=== PATIENT | female | born 1965 | race Caucasian/White ===

== ENCOUNTER 2016-11-06 13:08 | Inpatient (IN) | payer BC ==
[~2016-11-06] VITALS: Ht 167.6 cm; Wt 65.9 kg
--- NOTE | 2016-11-06 15:00 | NUR ---
PT ARRIVED TO ROOM BY WHEELCHAIR FROM ER. C/O BACK PAIN 11/08. ADMISSION ASSESSMENT AND HISTORY COMPLETED. PT SITUATED. BED LOW, CALL LIGHT WITHIN REACH. ALL QUESTIONS ANSWERED. IV R FOREARM INFUSING ORDRED. DRSG CLEAN, DRY AND INTACT. SWAB CAPS IN PLACE.
[2016-11-06 15:09] VITALS: BP 126/74; Ht 167.6 cm; Wt 65.9 kg
[2016-11-06 15:54] LABS: BASOPHILS 0.3 % (0-2); HEMATOCRIT 38.1 % (36.0-48.0); HEMOGLOBIN 12.5 g/dL (12-16); IMMATURE GRANULOCYTES 0.2 % (0-5); LYMPHOCYTES 27.8 % (15-50); MCH 30.5 pg (26.0-34.0); MCHC 32.8 g/dL (31.0-37.0); MCV 92.9 fL (80.0-100.0); MEAN PLATELET VOLUME 9.2 fL (7.4-10.4); MONOCYTES 9.6 % (2-11); NEUTROPHILS 61.1 % (40-80); PLATELET COUNT 283 10x3/uL (130-400); RDW 14.1 % (11.5-14.5); WBC 11.4 10x3/uL (4.8-10.8)
[2016-11-06 16:06] LABS: INR 0.93 (0.85-1.17); PROTIME 12.4 SECONDS (11.6-15.0)
[2016-11-06 16:15] LABS: ALBUMIN 3.1 g/dL (3.4-5.0); ALKALINE PHOSPHATASE 43 U/L (46-116); ALT (SGPT) 20 U/L (10-68); BILIRUBIN - TOTAL 0.25 mg/dL (0.2-1.3); CALC OSMOLALITY 272 mosm/kg (275-300); CALCIUM 7.9 mg/dL (8.5-10.1); CARBON DIOXIDE 29.9 mmol/L (21.0-32.0); CHLORIDE - SERUM 102 mmol/L (98-107); CREATININE - SERUM 0.8 mg/dL (0.6-1.3); GLUCOSE 91 mg/dL (74-106); POTASSIUM - SERUM 3.7 mmol/L (3.5-5.1); PROTEIN - SERUM 6.9 g/dL (6.4-8.2); SODIUM 137 mmol/L (136-145); UREA NITROGEN 10 mg/dL (7-18); eGFR NON AFRICAN AMERICAN 80 mL/min (90-120)
--- NOTE | 2016-11-06 17:16 | NUR ---
PT IN BED, EATING DINNER. NO COMLAINTS AT THIS TIME. AT BEDSIDE. BED LOW, CALL LIGHT WITHIN REACH.
[2016-11-06 17:36] VITALS: BP 126/74
[2016-11-06 17:40] VITALS: BP 126/74
[2016-11-06 19:46] LABS: ERYTHROCYTE SEDIMENTATION RATE 45 mm/hr (0-30)
[2016-11-06 20:00] VITALS: BP 123/75
[2016-11-06 20:15] LABS: APPEARANCE CLEAR (CLEAR); BILIRUBIN NEGATIVE (NEGATIVE); COLOR YELLOW (YELLOW); GLUCOSE NEGATIVE (NEGATIVE); KETONE NEGATIVE (NEGATIVE); LEUKOCYTE ESTERASE NEGATIVE (NEGATIVE); NITRITE NEGATIVE (NEGATIVE); PROTEIN NEGATIVE (NEGATIVE); SPECIFIC GRAVITY 1.015 (1.005-1.020); UROBILINOGEN NORMAL (NORMAL)
--- NOTE | 2016-11-06 20:17 | NUR ---
PT SEEN. STATES PAIN IS MID BACK. STATES INSIDE WIRER HELPS. UNCOMFORTABLE AT PRESENT BUT SHIFTS IN BED TO RELIEVE DISCOMFORT. NPO AFTER MIDNIGHT FOR BX IN AM-CONSENTS SIGNED. EXPLAINED TO PATIENT. CALL LIGHT IN REACH
--- NOTE | 2016-11-06 21:15 | NUR ---
LYING IN BED,WITHOUT DISTRESS.STATES PAIN 8/10 SCALE TO UPPER BACK.SKILLED NURSING FACILITY COUNSELOR USE INSTRUCTED.CALL LIGHT IN REACH. FAMILY AT BEDSIDE
[2016-11-07] VITALS: BP 120/70
--- NOTE | 2016-11-07 06:38 | NUR ---
REMAINS WITHOUT CHANGE.NPO FOR SURGERY TODAY.CONT PLAN OF CARE
--- NOTE | 2016-11-07 07:00 | NUR ---
PT REC'D FROM JOSE, ANDRZEJ. RESTING IN BED WITH AT BEDSIDE. RATING CURRENT PAIN IN BACK 11/08. REMINDED PT OF DILAUDID DIRECTOR FUNDS DEVELOPMENT AND HOW TO USE IT. PRESSED BUTTON FOR PATIENT. REGULAR HEART RATE AND RHYTHM. LUNG SOUNDS CLEAR AND EQUAL BILAT. BED LOW, CALL LIGHT IN REACH, DENIES NEEDS. CPOC.
--- NOTE | 2016-11-07 08:56 | NUR ---
PT TAKEN FOR BIOPSY. CONSENTS CHANGED BY LADI TO SAY T2 INSTEAD OF T4. PT AWARE AND LADI HAD HER INTIAL.
[2016-11-07 09:01] LABS: BASOPHILS 0.2 % (0-2); EOSINOPHILS 1.5 % (0-7); HEMATOCRIT 38.5 % (36.0-48.0); HEMOGLOBIN 12.5 g/dL (12-16); IMMATURE GRANULOCYTES 0.2 % (0-5); LYMPHOCYTES 28.9 % (15-50); MCH 30.1 pg (26.0-34.0); MCHC 32.5 g/dL (31.0-37.0); MCV 92.8 fL (80.0-100.0); MEAN PLATELET VOLUME 9.4 fL (7.4-10.4); MONOCYTES 11.4 % (2-11); NEUTROPHILS 57.8 % (40-80); PLATELET COUNT 290 10x3/uL (130-400); RBC 4.15 10x6/uL (4.00-5.40)
[2016-11-07 09:20] LABS: ALBUMIN 3.1 g/dL (3.4-5.0); ALKALINE PHOSPHATASE 46 U/L (46-116); ALT (SGPT) 23 U/L (10-68); BILIRUBIN - TOTAL 0.25 mg/dL (0.2-1.3); CALC OSMOLALITY 274 mosm/kg (275-300); CALCIUM 8.1 mg/dL (8.5-10.1); CARBON DIOXIDE 29.7 mmol/L (21.0-32.0); CHLORIDE - SERUM 102 mmol/L (98-107); CREATININE - SERUM 0.7 mg/dL (0.6-1.3); GLUCOSE 108 mg/dL (74-106); SODIUM 138 mmol/L (136-145); UREA NITROGEN 8 mg/dL (7-18); eGFR NON AFRICAN AMERICAN > 90 mL/min (90-120)
[2016-11-07 09:24] LABS: APTT 29.9 SECONDS (22.8-39.4); INR 0.89 (0.85-1.17); PROTIME 11.9 SECONDS (11.6-15.0)
--- NOTE | 2016-11-07 09:30 | NUR ---
PT RETURNED BACK TO ROOM VIA BED. SLIGHTLY DROWSY, BUT EASILY AROUSED. AT BEDSIDE. DRESSING TO MID UPPER BACK CDI. BED LOW, CALL LIGHT IN REACH, RECONNECTED TO IVF AND NURSING DIRECTOR SET UP. CPOC.
[2016-11-07 09:41] VITALS: BP 111/79
--- NOTE | 2016-11-07 10:40 | NUR ---
NEW MED PASSED AT THIS TIME. EXPLAINED TO PT PURPOSE OF MEDICATION AND HOW IT WORKS. DRESSING TO UPPER MID BACK CDI. BED LOW, CALL LIGHT IN REACH, DENIES NEEDS. CPOC.
--- NOTE | 2016-11-07 11:37 | NUR ---
PT AOX4 RESP EVEN AND NONLABORED PT HERE FOR BACK PAIN FOR THIS VISIT IV TO RIGHT ARM PATENT AND INTACT AT THIS TIME SRX2 BED AT LOWEST SETTING CALL LIGHT WITHIN REACH WILL CONTINUE TO MONITOR
[2016-11-07 12:55] VITALS: BP 127/77
--- NOTE | 2016-11-07 13:15 | NUR ---
Patient Name: FIDELIA MATHEWS Admission Status: ER Accout number: [id number] Admission Date: 11-06-2016 : 1965 Admission Diagnosis: Attending: ARIELLE Current LOS: 1 Anticipated DC Date: 11-09-2016 Planned Disposition: Home Primary Insurance: BLUE CROSS TRUE BLUE PPO Discharge Planning Comments: CM MET WITH PATIENT REGARDING D/C NEEDS AND PLANS. PATIENT STATED SHE LIVES WITH HER SPOUSE (TRANG) AND HE WILL DRIVE HER HOME AT DISCHARGE. PATIENT STATED SHE HAS 3 STEPS W/O RAILS TO ENTER HOME AND NO STAIRS INSIDE. PATIENT STATED SHE IS INDEPENDENT WITH HER CARE AND HAS NO DME AT HOME. PATIENTS PCP IS DR. COREA IN [place] AND PHARMACY IS [facility] IN [place]. PATIENT DENIED NEEDS FOR HOME HEALTH. CM WILL CONTINUE TO FOLLOW PATIENT WITH D/C NEEDS AND PLANS. PCP DR. COREA IN [facility] IN [place] [phone] TRANG (SPOUSE) [phone] Office Executive: Rufina Mcdaniel Is the patient Alert and Oriented? Yes 0 * How many steps to enter\exit or inside your home? 3 0 * PCP DR. COREA ([place]) 0 * Pharmacy [facility] IN [place] 0 * Preadmission Environment Home with Family 0 * ADLs Independent 0 * Equipment None 0 * List name and contact numbers for known caregivers / representatives who currently or will assist patient after discharge: TRANG (SPOUSE) [phone] 0 * Community resources currently utilized None 0 * Additional services required to return to the preadmission environment? Yes 0 * Can the patient safely return to the preadmission environment? Yes 0 * Has this patient been hospitalized within the prior 30 days at any hospital? No 0 Grand Total: 0
[2016-11-07 16:20] VITALS: BP 125/73
--- NOTE | 2016-11-07 18:08 | NUR ---
PT UP AMBULATING AROUND HALLS.
--- NOTE | 2016-11-07 19:45 | NUR ---
RECIEVED SHIFT REPORT. PT IS LYING IN BED. ALERT AND ORIENTED AND ABLE TO VERBALIZE NEEDS. IV INFILTRATED AT THIS TIME. D/C'D WITH CATHETER INTACT. DRESSING TO POSTERIOR NECK C/D/I. PT IS AMBULATORY BUT WAS INSTRUCTED TO CALL FOR ANY ASSISTANCE NEEDED. PT STATES PIAN IS 10/10. DR HERNANDEZ IN ROOM AT THIS TIME. WILL MONITOR. SIDE RAILS ARE UP X 2. BED IS IN LOWEST POSITION. CALL LIGHT IS WITHIN REACH.
[2016-11-07 20:00] VITALS: BP 133/81
--- NOTE | 2016-11-07 20:31 | NUR ---
SHIFT ASSESSMENT COMPLETED. NIGHT MEDS GIVEN WITH NO PROBLEMS. PT REQUESTING PRN ATIVAN. ADMINISTERED PER ORDER. IV SITED TO LEFT FOREARM X 1 ATTEMP. 22G. GOOD BLOOD RETURN. FLUSHES W/O DIFFICULTY. FLUIDS AND TANBARK PEELER HOOKED BACK UP PER ORDER AND BOLUS DOSE ON TANBARK PEELER INITIATED. NO NEEDS AT THIS TIME. VISITOR AT BEDSIDE. WILL MONITOR. SIDE RAILS X 2. BED LOW. CALL LIGHT IN REACH.
[2016-11-08 04:00] VITALS: BP 115/71
--- NOTE | 2016-11-08 07:00 | NUR ---
PT REC'D FROM ANDRZEJ DRAKE. RESTING IN BED WITH EYES CLOSED. EASILY AROUSED. AAOX4. RATING CURRENT PAIN IN BACK AND NECK 10/08. STATES, "EVER SINCE THEY GAVE ME THE ATIVAN IT HAS HELPED TAKE THE EDGE OFF." DRESSING TO POSTERIOR NECK CDI. PT ABLE TO SIT UP MUCH EASIER THAN YESTERDAY. PIV TO L FOREARM FREE OF REDNESS AND SWELLING. BED LOW, CALL LIGHT IN REACH, DENIES NEEDS. CPOC.
[2016-11-08 09:02] VITALS: BP 121/81
--- NOTE | 2016-11-08 09:15 | NUR ---
MORNING MEDS PASSED. RATING CURRENT PAIN IN NECK AND BACK 5/10. BED LOW, CALL LIGHT IN REACH, DENIES NEEDS. CPOC.
--- NOTE | 2016-11-08 12:45 | NUR ---
WEED COOKING OPERATOR MACHINE CHANGED DUE TO CHANNEL REPEATEDLY BECOMING DISCONNECTED. NO COMPLAINTS. BED LOW, CALL LIGHT IN REACH, DENIES NEEDS. CPOC.
--- NOTE | 2016-11-08 12:53 | NUR ---
PT SEEN FOR CIVIL CAD DESIGNER NOTE. NO COMPLAINTS AT PRESENT. STATES PAIN IS CONTROLLED PER BODY ROLLING MACHINE TENDER MACHINE AND RESTED LAST NIGHT WITH ATIVAN. CALL LIGHT IN REACH
[2016-11-08 13:26] VITALS: BP 131/80
--- NOTE | 2016-11-08 14:30 | NUR ---
ONE TIME DOSE OF ATIVAN ADMINISTERED PER DR. HERNANDEZ.
[2016-11-08 16:28] VITALS: BP 125/71
[2016-11-08 20:00] VITALS: BP 116/69
--- NOTE | 2016-11-08 23:59 | NUR ---
ALERT & ORIENTED. PAIN CONTROLLED BY PRINTMAKER. DRESSING TO UPPER BACK C/D/I. GAVE PT ATIVAN FOR SLEEP. PT C/O BREAKTHROUGH PAIN 12/09 WHEN SHE CHANGING POSITIONS. GAVE PERCOCET. NO OTHER NEEDS. PT TRYING TO GO TO SLEEP NOW. WILL CONTINUE TO MONITOR.
[2016-11-09] VITALS: BP 141/79
[2016-11-09 04:00] VITALS: BP 129/77
[2016-11-09 05:47] LABS: BASOPHILS 0.4 % (0-2); EOSINOPHILS 2.7 % (0-7); HEMATOCRIT 37.2 % (36.0-48.0); HEMOGLOBIN 12.4 g/dL (12-16); IMMATURE GRANULOCYTES 0.3 % (0-5); LYMPHOCYTES 32.1 % (15-50); MCH 30.5 pg (26.0-34.0); MCHC 33.3 g/dL (31.0-37.0); MCV 91.4 fL (80.0-100.0); MEAN PLATELET VOLUME 9.4 fL (7.4-10.4); MONOCYTES 11.3 % (2-11); NEUTROPHILS 53.2 % (40-80); PLATELET COUNT 309 10x3/uL (130-400); RBC 4.07 10x6/uL (4.00-5.40); RDW 13.5 % (11.5-14.5); WBC 7.7 10x3/uL (4.8-10.8)
[2016-11-09 06:11] LABS: CALC OSMOLALITY 273 mosm/kg (275-300); CALCIUM 8.9 mg/dL (8.5-10.1); CARBON DIOXIDE 27.5 mmol/L (21.0-32.0); CHLORIDE - SERUM 103 mmol/L (98-107); CREATININE - SERUM 0.8 mg/dL (0.6-1.3); GLUCOSE 110 mg/dL (74-106); POTASSIUM - SERUM 4.5 mmol/L (3.5-5.1); SODIUM 137 mmol/L (136-145); UREA NITROGEN 9 mg/dL (7-18); eGFR NON AFRICAN AMERICAN 80 mL/min (90-120)
--- NOTE | 2016-11-09 07:25 | NUR ---
RECIEVED REPORT, ASSUMED CARE OF PT. NO COMPLAINTS AT THIS TIME. BED LOW, SIDE RAILS UP X 2, CALL LIGHT WITHIN REACH.
[2016-11-09 08:27] VITALS: BP 135/73
--- NOTE | 2016-11-09 10:00 | NUR ---
IV PUMP PUT ON HOLD, PT UP TO SHOWER. NO COMPLAINTS AT THIS TIME.
--- NOTE | 2016-11-09 11:55 | NUR ---
PT RESTING IN ROOM. C/O PAIN 8/10 IN BACK AND HIPS "FROM LAYING IN THIS BED." PRN PERCOCET GIVEN ORDERED. PT C/O ITCHING AROUND BIOPSY SITE DRSG. REDNESS AND IRRITATION NOTED. PT STATES "I'VE HAD A REACTION TO ADHESIVE BEFORE." NO OTHER COMPLAINTS AT THIS TIME.
--- NOTE | 2016-11-09 12:15 | NUR ---
PT DRSG AND IV TAPE TAKEN OFF, PAPER TAPE APPLIED TO SECURE IV. NO OTHER COMPLAINTS AT THIS TIME.
--- NOTE | 2016-11-09 12:25 | NUR ---
SPOKE WITH RADHA CERRATO APN. NOTIFIED HER OF RASH AND ITCHING. BENEDRYL 25MG Q8H PRN ITCHING/RASH ORDRED. AND BIOPSY SITE ANNIE D/C'D. WILL CON'T TO MONITOR.
[2016-11-09 13:17] LABS: FUNGUS STAIN Final report (())
[2016-11-09 13:47] VITALS: BP 120/77
--- NOTE | 2016-11-09 14:34 | NUR ---
PT RESTING IN ROOM, WATCHING TV. AT BEDSIDE. NO COMPLAINTS AT THIS TIME. IV INFUSING ORDERED, DRSG CLEAN, DRY AND INTACT. TOOLMAKER PRN. CALL LIGHT WITHIN REACH.
[2016-11-09 16:15] VITALS: BP 124/83
--- NOTE | 2016-11-09 16:37 | NUR ---
PT STATES RELIEF PROVIDED WITH BENEDRYL AND HYDROCORTISONE CREAM. NO COPMLAINTS AT THIS TIME. AT BED SIDE. CALL LIGHT WITHIN REACH.
[2016-11-09 16:59] LABS: BASOPHILS 0.7 % (0-2); EOSINOPHILS 3.2 % (0-7); HEMATOCRIT 38.1 % (36.0-48.0); HEMOGLOBIN 12.9 g/dL (12-16); IMMATURE GRANULOCYTES 0.3 % (0-5); MCH 30.5 pg (26.0-34.0); MCHC 33.9 g/dL (31.0-37.0); MCV 90.1 fL (80.0-100.0); MEAN PLATELET VOLUME 9.1 fL (7.4-10.4); MONOCYTES 11.8 % (2-11); PLATELET COUNT 316 10x3/uL (130-400); RBC 4.23 10x6/uL (4.00-5.40); RDW 13.4 % (11.5-14.5); WBC 7.5 10x3/uL (4.8-10.8)
--- NOTE | 2016-11-09 17:30 | NUR ---
VANCOMYCIN INFUSION NOT STARTED, VANC TROUGH NOT RECIEVED. NOTIFIED LAB, STATED THEY WILL HAVE IT DRAWN IN THE NEXT 20 MINUTES.
--- NOTE | 2016-11-09 18:50 | NUR ---
PT RESTING. NO COMPLAINTS AT THIS TIME. IV FLUIDS RUNNING ORDERED. TABLET MACHINE OPERATOR ORDERED. BED LOW, CALL LIGHT WITHIN REACH.
[2016-11-09 19:10] LABS: ACID FAST SMEAR Negative (()); AFB SPECIMEN PROCESSING Concentration (())
[2016-11-09 20:00] VITALS: BP 139/84
--- NOTE | 2016-11-09 20:05 | NUR ---
AWAKE,ALERT,NO COMPLAINTS VOICED. RASH TO BACK.STATES FROM TAPE. IV INFUSING TO.LEFT ARM WIHTOUT REDNESS OR EDEMA NOTED. CL IN REACH
[2016-11-09 20:12] LABS: ERYTHROCYTE SEDIMENTATION RATE 34 mm/hr (0-30)
[2016-11-10] VITALS (7 sets, daily range): BP systolic 120–140; BP diastolic 67–83
--- NOTE | 2016-11-10 01:12 | NUR ---
EYES CLOSED RESP EVEN AND UNLABORED. NO DISTRESS NOTED. CL IN REACH
--- NOTE | 2016-11-10 05:21 | NUR ---
AWAKE,ALERT.ATIVAN GIVEN FOR ANXIETY PER REQUEST. CL IN REACH
[2016-11-10 06:32] LABS: BASOPHILS 0.4 % (0-2); EOSINOPHILS 4.5 % (0-7); HEMATOCRIT 39.7 % (36.0-48.0); HEMOGLOBIN 13.2 g/dL (12-16); IMMATURE GRANULOCYTES 0.3 % (0-5); MCHC 33.2 g/dL (31.0-37.0); MCV 90.2 fL (80.0-100.0); MEAN PLATELET VOLUME 9.3 fL (7.4-10.4); MONOCYTES 12.2 % (2-11); NEUTROPHILS 48.6 % (40-80); PLATELET COUNT 342 10x3/uL (130-400); RDW 13.4 % (11.5-14.5); WBC 7.1 10x3/uL (4.8-10.8)
[2016-11-10 06:50] LABS: CALC OSMOLALITY 276 mosm/kg (275-300); CALCIUM 8.6 mg/dL (8.5-10.1); CARBON DIOXIDE 29.9 mmol/L (21.0-32.0); CHLORIDE - SERUM 103 mmol/L (98-107); CREATININE - SERUM 0.8 mg/dL (0.6-1.3); GLUCOSE 131 mg/dL (74-106); POTASSIUM - SERUM 4.1 mmol/L (3.5-5.1); SODIUM 138 mmol/L (136-145); UREA NITROGEN 9 mg/dL (7-18); eGFR NON AFRICAN AMERICAN 80 mL/min (90-120)
--- NOTE | 2016-11-10 07:20 | NUR ---
REPORT RECEIVED, ASSUMED CARE OF PT. SLEEPING. IV FLUIDS RUNNING ORDERED, PATENT, DRSG CLEAN, DRY AND INTACT. MUD ANALYSIS OPERATOR ORDERED. BED LOW, CALL LIGHT WITHIN REACH. SLEEPING.
--- NOTE | 2016-11-10 10:30 | NUR ---
PT C/O BURNING AND REDNESS AROUND IV SITE. REDNESS AND MINIMAL EDEMA NOTED. FLUIDS STOPPED. WILL RESITE.
--- NOTE | 2016-11-10 11:19 | NUR ---
IV SITED TO RIGHT FOREARM AFTER 2 ATTEMPTS WITH 22G. IV D/C TO LEFT FOREARM WITH CATHETER INTACT. ALSO REQUESTED AND GIVNE ONE PERCOCET PO FOR C/O PAIN TO SPOT ON BACK LEVEL 9. WILL MONITOR.
--- NOTE | 2016-11-10 14:55 | NUR ---
PT UP TO SHOWER. NO COMPLAINTS AT THIS TIME. AT BEDSIDE. LINENS CHANGED BY AIDE.
--- NOTE | 2016-11-10 19:09 | NUR ---
PT RESTING WITH EYES SHUT. NO COMPLAINTS AT THIS TIME. IV AND SYBASE DEVELOPER INFUSING ORDERED. AT BEDSIDE. BED IN LOWEST POSITION, CALL LIGHT WITHIN REACH.
--- NOTE | 2016-11-11 00:45 | NUR ---
REC'D IN BED WATCHING TV.STATES REMOVED DRSG. FROM THORACIC SPINE NO DRAINAGE OBSERVED. DENIES PAIN AT PRESENT TIME. WILL CONTINUE TO MONITOR FOR ANY CHGES.AND FOLLOW CURRENT PLAN OF CARE
[2016-11-11 04:00] VITALS: BP 121/70
--- NOTE | 2016-11-11 07:25 | NUR ---
PT RESTING WITH EYES SHUT, AT BEDSIDE, SLEEPING. R FOREARM IV INFUSING ORDERED, PUBLIC RELATIONS CONSULTANT ORDERED. NO ACUTE DISTRESS NOTED. BED IN LOWEST POSITION, SIDE RAILS UP X 2, CALL LIGHT WITHIN REACH.
[2016-11-11 10:07] VITALS: BP 127/75
--- NOTE | 2016-11-11 11:49 | NUR ---
PT SLEEPING. NO DISTRESS NOTED. BED IN LOWEST POSITION, SIDE RAILS UP X 2, CALL LIGHT WITHIN REACH.
[2016-11-11 12:27] VITALS: BP 121/70
--- NOTE | 2016-11-11 15:17 | NUR ---
R ARM IV BURNING WITH REDNESS REPORTED BY PT. D/C'D, CATHETER INTACT. BANDAGE APPLIED. RE-SITED TO R UPPER ARM BY ANDRZEJ ASIF. PT TOLERATED WITH MINIMAL DISCOMFORT. NO COMPLAINTS AT THIS TIME. IV FLUIDS RUNNING ORDERED.
[2016-11-11 15:23] VITALS: BP 110/62
--- NOTE | 2016-11-11 15:32 | NUR ---
PT RETURNED TO FLOOR FROM PIPIDA SCAN. NO ACUTE DISTRESS NOTED. IV FLUIDS RUNNING ORDERED. JULIEN CATHETER INTACT. BED ALARM ON. BED IN LOWEST POSITION, SIDE RAILS UP X 2. CALL LIGHT WITHIN REACH.
--- NOTE | 2016-11-11 18:57 | NUR ---
PT RESTING IN ROOM, AT BEDSIDE. IV AND AUTOMATION LEAD INFUSING ORDERED. DRSG CLEAN, DRY AND INTACT. NO COMPLAINTS AT THIS TIME.
[2016-11-11 20:00] VITALS: BP 128/64
--- NOTE | 2016-11-11 23:25 | NUR ---
1930)REQUESTING NOW THAT ABX IS DONE. TO SHOWER.IV SL LOCKED.IV COVERED. ASSISTED BY TISH WELL. RASH LOOKING BETTER.LESS RED. WILL CONTINUE TO MONITOR FOR ANY CHGES. IN NEUROVASCULAR STATUS AND FOLLOW CURRENT PLAN OF CARE
--- NOTE | 2016-11-12 02:00 | NUR ---
PT IN BED WITH NO DISTRESS. RESPIRATIONS EVEN AND UNLABORED. SIDE RAILS X 2. BED IS LOW. CALL LIGHT IN REACH.
[2016-11-12 04:00] VITALS: BP 136/81
[2016-11-12 05:51] LABS: BASOPHILS 0.4 % (0-2); EOSINOPHILS 4.1 % (0-7); HEMATOCRIT 39.1 % (36.0-48.0); HEMOGLOBIN 13.1 g/dL (12-16); IMMATURE GRANULOCYTES 0.3 % (0-5); LYMPHOCYTES 31.5 % (15-50); MCH 30.2 pg (26.0-34.0); MCHC 33.5 g/dL (31.0-37.0); MCV 90.1 fL (80.0-100.0); MEAN PLATELET VOLUME 9.4 fL (7.4-10.4); MONOCYTES 10.2 % (2-11); NEUTROPHILS 53.5 % (40-80); PLATELET COUNT 348 10x3/uL (130-400); RBC 4.34 10x6/uL (4.00-5.40); RDW 13.3 % (11.5-14.5); WBC 7.1 10x3/uL (4.8-10.8)
[2016-11-12 06:11] LABS: C-REACTIVE PROTEIN 1.5 mg/dL (0.0-0.9); CALC OSMOLALITY 278 mosm/kg (275-300); CALCIUM 8.7 mg/dL (8.5-10.1); CARBON DIOXIDE 30.2 mmol/L (21.0-32.0); CHLORIDE - SERUM 104 mmol/L (98-107); CREATININE - SERUM 0.8 mg/dL (0.6-1.3); GLUCOSE 110 mg/dL (74-106); POTASSIUM - SERUM 4.3 mmol/L (3.5-5.1); SODIUM 140 mmol/L (136-145); UREA NITROGEN 10 mg/dL (7-18); VANCOMYCIN - TROUGH 14.5 ug/mL (10.0-20.0); eGFR NON AFRICAN AMERICAN 80 mL/min (90-120)
--- NOTE | 2016-11-12 07:00 | NUR ---
PT AWAKE, ALERT AND ORIENTED. R UPPER ARM PERIPHERAL IV WITH D5 1/2 AT 100ML/HR. PIANO TUNER IN USE 0.2MG Q 10 MINUTES WITH 4MG Q 4 HR LOCK OUT. ON ROOM AIR. NO NEEDS AT THIS TIME. IN ROOM. WILL CONINUE TO MONITOR.
[2016-11-12 07:07] LABS: ERYTHROCYTE SEDIMENTATION RATE 29 mm/hr (0-30)
[2016-11-12 08:33] VITALS: BP 117/72
--- NOTE | 2016-11-12 10:32 | NUR ---
URINE SAMPLE COLLECTED.
--- NOTE | 2016-11-12 11:38 | NUR ---
PT REPORTS PAIN ON NECK AND SHOULDERS 9/10. PERCOCET GIVEN PER ORDERS. WILL CONITUE TO MONITOR.
[2016-11-12 12:17] VITALS: BP 118/68
--- NOTE | 2016-11-12 15:24 | NUR ---
REPORTS PAIN ON NECK AND ARMS 7/10. PERCOCET TAB GIVEN FOR PAIN PER ORDERS. WILL CONTINUE TO MONITOR.
[2016-11-12 16:42] VITALS: BP 126/81
--- NOTE | 2016-11-12 19:26 | NUR ---
PT IS SITTING IN BED EYES DIRECTED AT TV. BED IN LOW POSITION, VERBALIZED NO NEEDS AT THIS TIME. NO SIGNS OF DISTRESS, EVEN RISE AND FALL OF CHEST. BED IN LOW POSITION, CALL LIGHT IN REACH CONTINUIE WITH CARE PLAN
[2016-11-12 20:00] VITALS: BP 133/62
[2016-11-13] VITALS: BP 114/60
--- NOTE | 2016-11-13 02:00 | NUR ---
PT IN BED RESTING WITH NO DISTRESS. RESPIRATIONS EVEN AND UNLABORED. AT THE BEDSIDE. SIDE RAILSL X 2. BED IS LOW. CALL LIGHT IN REACH.
[2016-11-13 04:00] VITALS: BP 117/62
--- NOTE | 2016-11-13 07:00 | NUR ---
PT SLEEPING AT THIS TIME. PERIPHERAL IV ON RIGHT UPPER ARM INFUSING NS AT 30ML/HR. NO NEEDS AT THIS TIME. WILL CONTINUE TO MONITOR.
[2016-11-13] MEDS ORDERED: ATIVAN1 MG PO (08:41)
[2016-11-13] MEDS ORDERED: PERCOCET 10/3251 TA1 PO (08:41)
--- NOTE | 2016-11-13 08:44 | NUR ---
CM REASSESSMENT NOTE: PATIENT IS DISCHARGING HOME TODAY/PICC PLACEMENT TODAY/IV ABX ORDERED THROUGH [facility] IN [place] SIGNED.
[2016-11-13 08:54] VITALS: BP 123/77
[2016-11-13 11:55] VITALS: BP 135/77
[2016-11-13] MEDS ORDERED: MAXIPIME 2 GM/D52 G1 IV (12:12)
--- NOTE | 2016-11-13 13:33 | NUR ---
CM REASSESSMENT NOTE: PATIENT IS DISCHARGING HOME TODAY BY PRIVATE CAR/ DRIVING. [facility] NOTIFIED AND [facility] IN [place] NOTIFIED OF PATIENT D/C. [facility] HAS CONTACTED [facility] AND ARE MEETING AT PATIENTS HOME TONIGHT. [facility] [phone] [facility] ([place]) [phone] FAX [phone]
[2016-11-13 14:19] LABS: BRUCELLA IGG Negative (Negative); BRUCELLA IGM Negative (Negative)
[2016-11-13 15:20] LABS: HISTOPLASMA GAL MANNAN AG SER 0.05 ng/mL (0.00-0.49)
--- NOTE | 2016-11-13 15:26 | NUR ---
DISCHARGED INSTRUCTIONS GIVEN. RIGHT UPPER ARM PERIPHERAL IV REMOVED WITH CATHETER INTACT. PT TOLERATED WELL.
== END 2016-11-13 16:12 | disposition home health service (06) | DRG 478 ==
LOC: D.ER 13:08 → D.MS 14:47
PROVIDERS: Emergency Medicine; Nurse Practitioner Family; Specialist; Student in an Organized Health Care Education/Training Program; ADMIT Orthopaedic Surgery
PROC: 0P943ZX Drainage of Thoracic Vertebra, Percutaneous Approach, Diagnostic (ICD-10-PCS; principal; 2016-11-07 09:00)
PROC: 02HV33Z Insertion of Infusion Device into Superior Vena Cava, Percutaneous Approach (ICD-10-PCS; 2016-11-13)
PROC: B548ZZA Ultrasonography of Superior Vena Cava, Guidance (ICD-10-PCS; 2016-11-13)
DX: M46.24 Osteomyelitis of vertebra, thoracic region (principal); G95.9 Disease of spinal cord, unspecified; K59.00 Constipation, unspecified; E03.9 Hypothyroidism, unspecified; F41.8 Other specified anxiety disorders; M19.90 Unspecified osteoarthritis, unspecified site

== ENCOUNTER → 2016-12-14 12:47 | Outpatient (CLI) | payer BC ==
[2016-11-06 15:09] VITALS: BMI 23.4
[~2016-12-14 12:47] MED LIST: ATIVAN1 MG PO; MAXIPIME 2 GM/D52 G1 IV; PERCOCET 10/3251 TA1 PO
== END | disposition home or self-care (01) ==
LOC: D.MRI 11:00
DX: M46.22 Osteomyelitis of vertebra, cervical region (principal)

== ENCOUNTER → 2017-03-05 14:25 | Outpatient (CLI) | payer BC ==
[2016-11-06 15:09] VITALS: BMI 23.4
[~2017-03-05 14:25] MED LIST changes: +CARAFATE1 G PO; +DILAUDID2 MG PO; +MEDROL DOSE PACK4 MG PO; +NEURONTIN 300300 MG PO; +OXYCODONE HCL E20 MG PO; +ZOFRAN4 MG PO
== END | disposition home or self-care (01) ==
LOC: D.MRI 14:25
DX: L02.212 Cutaneous abscess of back [any part, except buttock and flank] (principal); M46.24 Osteomyelitis of vertebra, thoracic region

== ENCOUNTER 2017-05-06 13:40 | Inpatient (IN) | payer BC ==
[~2017-05-06] VITALS: Ht 167.6 cm; Wt 65.9 kg
--- NOTE | ~2017-05-06 | CN ---
PATIENT NAME:ANGIE MATHEWS MEDICAL RECORD: [id number] : 61 LOCATION:[id number] ADMIT DATE: 05/06/17 ACCOUNT: [id number] CONSULTING PHYSICIAN: LUZMARIA HOGAN MD REFERRING PHYSICIAN: ALDAIR ALCARAZ MD DATE OF CONSULTATION: 05/09/2017 Rheumatology Consultation REFERRING PHYSICIAN: Lorenzo Wells MD. PHYSICIANS: NEUROSURGEON: Dr. Aldair Alcaraz. INFECTIOUS DISEASE: Dr. Peterson. GENERAL SURGEON: Dr. Lorenzo Wells. ORTHOPEDIC SURGEON: Dr. Sivakumar Alfaro. PRIMARY CARE PHYSICIAN: Dr. Kermit Jones [place], [place]. HISTORY OF PRESENT ILLNESS: Angie Mathews is a 51-year-old woman whom I have been asked to evaluate by Dr. Lorenzo Wells regarding persistent musculoskeletal pain, some facial erythema. I spoke directly with Dr. Alcaraz, her neurosurgeon, and he filled in a lot of details of her illness. In October 2016, she was found to have T1-T2 discitis with Propionibacterium acnes positive culture for which she underwent 6 weeks of treatment with Rocephin. She reports that the pain resolved and she felt well until December when the pain recurred again around the T1-T2 area. Since December, she has received 3 different steroid injections here each one helping dramatically for about 2 weeks and then pain recurring. The patient has been treated with Percocet since December for the pain. She reports this did help temporarily. Coinciding with Percocet, she has developed some odynophagia, mild dysphagia, and some abdominal bloating and now has abdominal distention. EGD today showed distal esophagitis, small shallow ulcer at the GE junction, duodenitis. There is also a question of a gastroparesis. She has now been placed on Protonix 40 mg b.i.d. and Reglan 5 mg q.i.d. The patient was admitted because of worsening pain at T1-T2 area, which was not responding to outpatient treatment. She is now on stronger analgesics and was given Decadron 8 mg every 6 hours, decreased to 4 mg every 8 hours. On admission; WBC 9800, hemoglobin 13.3. Sed rate 4. C-reactive protein 1.6 (normal less than 0.9), this had decreased from a CRP of 9.8 in October 2016, creatinine 0.9. Thoracic MRI showed interval improvement in T1-T2 with evidence of residual postcontrast enhancement in the posterior epidural space and multilevel degenerative disc disease at T8-9-10 and right paracentral disc T8-9 and mild bulging at T9-10. Chest CT showed fluid in the esophagus and distention of the stomach. Focal segmental atelectasis of the left lung base. Cranial MRI normal. On exam, I had noted she has bilateral parotid and submandibular enlargement. She initially did deny any dryness, but on further questioning may have had some mild dryness in her eyes and mouth. The oral dryness was attributed to her pain CONSULT REPORT [id number] ANGIE MATHEWS. She denies dry skin. She has never had photosensitivity. She has some flushing of her entire face, anterior neck, and upper chest, but does not have a definite malar rash. 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 Last fall, she had applied heat or spine during flares of pain leaving on no more than 15 minutes. There was some question of whether or not she might have livedo change in her back, but I do not see that at this time, I do see some flushed area of the entire upper midback. She has not had alopecia areata, seizures, recurrent lymphadenopathy, pleurisy, pleural effusion, pericarditis, hepatitis, or pertinent hematuria. No bleeding or clotting disorders. She has never had a reaction to hormones or any complication of her . There is no known family history of lupus or other connective tissue disease or rheumatoid arthritis. 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 She has both pain and swelling enlargment of her first MTPs. She had previous right shoulder surgery by Dr. Alfaro. ALLERGIES: SHE IS ALLERGIC TO HYDROCODONE AND PENICILLIN. CURRENT MEDICATIONS: MiraLax 1 packet daily, Senokot-S 2 tablets b.i.d., Carafate suspension 1 g before meals t.i.d. and at bedtime, Protonix 40 mg IV b.i.d. (starting 05/03/2017), Metoclopramide 5 mg IV every 6 hours (starting 05/09/2017), Dulcolax suppositories daily, dexamethasone 4 mg every 8 hours starting 05/07 decreasing to 4 mg every 8 hours on 05/09, Gabapentin 300 mg t.i.d., Zofran p.r.n., Narcan p.r.n. She was on Dilaudid IV, which has been discontinued. PAST MEDICAL HISTORY: She has had tubal ligation, breast augmentation. She had right shoulder arthroscopy and later had manipulation. She had been treated for osteoarthritis first CMC joints approximately 6 years ago. She has history dermatographism as previously outlined above unresponsive to Atarax. T1-T2 discitis May 2016 as outlined above. PAST SURGICAL HISTORY: Outlined above. SOCIAL HISTORY: She does not smoke, rarely drinks alcohol. She lives in [place] with her . She was physically active before all this developed. FAMILY HISTORY: Positive family history of Alzheimer's, ASHD, diabetes. No family history of rheumatoid arthritis, lupus or connective tissue disease. REVIEW OF SYSTEMS: At home, she had occasional slight mild sweats. She has not had any rigor but occasionally felt cool. She has not had known diabetes. She reports she was using levothyroxine at home, but is not in current medications. She denies diabetes. Her upper back pain might possibly increase with deep breathing, possibly cough, but there is no pain in the anterior chest with coughing. She has never had gallstones, frequent urinary tract infections, numbness, tingling, paresthesias, focal muscle weakness, TIA, or stroke. CONSULT REPORT [id number] ANGEI MATHEWS PHYSICAL EXAMINATION: VITAL SIGNS: Blood pressure 150/90, pulse 67 and regular, respirations 16, temperature 98. HEENT: Head: Normal female hair pattern without alopecia. Eyes: Conjunctivae are slightly injected. She has contacts in place. MOUTH: Dry without lesions. Parotid glands are moderately enlarged bilaterally, are nontender, submandibular glands are mildly enlarged bilaterally, are nontender. NECK: Supple. Trachea is midline. There is no adenopathy in neck, axilla or inguinal areas. LUNGS: Clear. CARDIOVASCULAR: S1, S2 are normal without gallop, murmur, or rub. ABDOMEN: Soft with mild tenderness in the epigastrium. Liver, spleen, and kidneys not palpable. There is some distention. MUSCULOSKELETAL: There is osteoarthritis, some bony enlargement of the second and third DIPs bilaterally and previous surgery on the 1st CMCs. Shoulders have full range of motion. Knees, hips, ankles have full painless range of motion. There is moderate bony enlargement of the first MTPs which were nontender. There is mild tenderness at T1-T2 area, slight tenderness of the transverse processes of the neck, questionable tenderness of the spinous process of the neck. Cervical spine has full range of motion, but there is some discomfort in the upper thoracic area with flexion. She currently is nontender from T2-L5. Paraspinal muscles are nontender. Point count for fibromyalgia, pelvic and shoulders girdle, axial skeleton was negative. Pressing on the second and third costochondral junctions bilaterally causes pain in the T1-T2 area, but no tenderness at costochondral junctions themselves. There is mild nontender bony margin of the right AC joint, which is chronic. NEUROLOGIC: Cranial nerves are intact. Moves all extremities. Strength is grossly normal. SKIN: There is diffuse flushing of the entire face, upper chest, anterior neck, which blanches easily. There is somewhat diffuse flushing of the entire upper and mid back. There is no evidence of fixed malar rash or any definite livedo at this time, no purpura, petechiae or infarcts or nodules. IMPRESSION: 1. Features of Sjogren syndrome. A. Bilateral parotid enlargement. B. Bilateral submandibular enlargement. C. Mild dry eyes and mouth. 2. T1-T2 discitis October 2016, treated with 6 weeks of Rocephin with temporary marked resolution of symptoms with subsequent recurrent pain unresponsive to recurrent steroid injections and analgesics. 3. Esophagitis, gastroesophageal junction ulcer, duodenitis by EGD today, possibly exacerbated by intermittent use of ibuprofen. 4. Abdominal bloating, distention, possible some degree of gastroparesis, aggravated by analgesics. 5. Reported history of thyroid dysfunction, currently off of thyroid replacement. RECOMMENDATIONS: 1. For Sjogren's, we will check SHERYL, RA, SSA, SSB, double stranded DNA, serum protein electrophoresis. 2. Treat Sjogren's symptomatically, we advised her to drinking water, avoid salt and sugar, later add moisturizing drops if indicated. CONSULT REPORT [id number] ANGIE MATHEWS 3. For esophagitis and duodenitis, continue Carafate, Protonix. 4. For gastroparesis, follow response to discontinuation of analgesics and adding Reglan. 5. Defer restarting thyroid supplement to treating physicians. 6. Cause of persistent pain in the T1-T2 area unknown. TRANSINT:[id number] Voice Confirmation ID: [id number] DOCUMENT ID: [id number] LUZMARIA HOGAN MD at 1811 CC: [id number] DICTATION DATE: 05/09/171911 TIRE ROOM SUPERVISOR: 05/09/17 2134 ADM IN [facility] [address] [id number]
--- NOTE | ~2017-05-06 | CN ---
PATIENT NAME:FIDELIA MATHEWS MEDICAL RECORD: [id number] : 61 LOCATION:D.MS [facility] ADMIT DATE: 05/06/17 ACCOUNT: [id number] CONSULTING PHYSICIAN: REYNA VASQUEZ MD REFERRING PHYSICIAN: ALDAIR ALCARAZ MD DATE OF CONSULTATION: 05/08/2017 CHIEF COMPLAINT: Fatigue. HISTORY OF PRESENT ILLNESS: The patient I believe has several different issues. I have outlined these in a typed note that is in the patient's chart. She had osteomyelitis. This was treated successfully with IV antibiotics. It does not appear that the osteomyelitis has recurred. The patient has several issues that have me concerned if she may have a neurologic issue, rheumatologic issue, or gastroenterologic tissue. I have outlined these in the chart. I want to contact Dr. Mcgill and consult him for an EGD due to the patient's dyspepsia, epigastric abdominal pain and tenderness as well as early satiety in a dilated stomach on the CT scan. Additionally, on the CT scan, there was fluid in the distal esophagus and a probable thickening of the distal esophagus. I think, we need to rule out an esophageal malignancy or Mar[place]illa esophagus in this patient. The patient also has muscle tenderness, it is not only around the back, but also near the scapula and the anterior chest wall. She is a woman that is fair skinned. 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 The lower back is excoriated from scratching. She can reach her out at the upper back and this is where the livedo reticularis rash is in my opinion. She also has what appears to be a butterfly rash. She has blue eyes. I am somewhat concerned about a rheumatologic condition such as systemic lupus erythematosus, a mixed connective tissue disorder, or something like polymyalgia rheumatica. I am going to consult Dr. Lei Florian to get his opinion whether the patient may have rheumatologic issue or not. The patient states that she has twitches. This is worse at the end of the day. It is better at the beginning today. It is worse when she is under stress. The patient fatigues throughout the day as well. I think, we need to rule out a neurologic condition such as multiple sclerosis. This is a consultation note addendum. For the typed portion of consult note, please see the chart. This would include the past medical and surgical history, allergies, current medications, social history as well as family history. REVIEW OF SYSTEMS: As described above. No fever. Some nausea. No vomiting. Positive for fatigability. Positive for headaches. Positive for back pain. Positive for abdominal bloating. The review of systems is negative other than as is described above. PHYSICAL EXAMINATION: GENERAL: The patient does not appear acutely ill. She does not appear chronically ill. BREAST: The breast examination was performed in the presence of a female nurse. EARS: External ears appear normal. EYES: Extraocular movements are intact. NECK: Trachea is midline. No stridor. Trachea midline. PULMONARY: Nonlabored. ABDOMEN: Protuberant. Not tympanitic. Epigastric tenderness. Otherwise, nontender. No peritonitis. No Rovsing sign. No Jason sign. EXTREMITIES: No peripheral cyanosis. CONSULT REPORT [id number] FIDELIA MATHEWS INTEGUMENT: Rash as described above. PSYCHIATRIC: Anxious affect. NEUROLOGIC: She does have some twitching movements that are involuntary. Answers questions appropriately. There is evidence of normal higher cortical function. BACK: No thoracic kyphosis, tenderness over the thoracic spine, pain with flexion of the neck. Tenderness in the paraspinal musculature. LYMPHATICS: No lymphangitic streaking of the exposed extremities. No definite evidence of lymphadenopathy. IMPRESSION: Rule out rheumatologic disorder. Rule out a gastroenterologic disorder. Rule out a rheumatologic issue. PLAN: As described above. I discussed this case personally with Dr. Alcaraz. I personally reviewed the patient's CT scan of the chest. I have personally reviewed the CT scan of the chest report. TRANSINT:[id number] Voice Confirmation ID: [id number] DOCUMENT ID: [id number] REYNA VASQUEZ MD CC: [id number] DICTATION DATE: 05/09/17 1641 ELECTRO TECH: 05/09/17 [address] [facility] [address] [place] [address]
[~2017-05-06 13:40] MED LIST changes: -CARAFATE1 G PO; -DILAUDID2 MG PO; -MEDROL DOSE PACK4 MG PO; -NEURONTIN 300300 MG PO; -OXYCODONE HCL E20 MG PO; -ZOFRAN4 MG PO
[2017-05-06 22:21] VITALS: BP 143/75
[2017-05-07 00:56] VITALS: BP 143/64
[2017-05-07 05:20] VITALS: BP 134/78
[2017-05-07 08:59] VITALS: BP 143/84
[2017-05-07 15:51] LABS: BASOPHILS 0.3 % (0-2); EOSINOPHILS 1.3 % (0-7); HEMATOCRIT 40.6 % (36.0-48.0); HEMOGLOBIN 13.3 g/dL (12-16); IMMATURE GRANULOCYTES 0.2 % (0-5); LYMPHOCYTES 24.7 % (15-50); MCH 30.8 pg (26.0-34.0); MCHC 32.8 g/dL (31.0-37.0); MEAN PLATELET VOLUME 9.6 fL (7.4-10.4); MONOCYTES 9.1 % (2-11); NEUTROPHILS 64.4 % (40-80); RBC 4.32 10x6/uL (4.00-5.40); WBC 9.8 10x3/uL (4.8-10.8)
[2017-05-07 16:14] LABS: PLATELET COUNT 227 10x3/uL (130-400)
[2017-05-07 16:38] LABS: ALBUMIN 3.6 g/dL (3.4-5.0); ANION GAP 14.4 mmol/L (8-16); BILIRUBIN - TOTAL 0.17 mg/dL (0.2-1.3); C-REACTIVE PROTEIN 1.6 mg/dL (0.0-0.9); CALCIUM 8.2 mg/dL (8.5-10.1); CARBON DIOXIDE 26.8 mmol/L (21.0-32.0); CREATININE - SERUM 0.9 mg/dL (0.6-1.3); POTASSIUM - SERUM 4.2 mmol/L (3.5-5.1); PROTEIN - SERUM 6.5 g/dL (6.4-8.2)
[2017-05-07 17:09] LABS: ERYTHROCYTE SEDIMENTATION RATE 4 mm/hr (0-30)
[2017-05-07 17:13] VITALS: BP 144/80
[2017-05-07 22:12] VITALS: BP 166/91
[2017-05-08 01:36] VITALS: BP 164/84
[2017-05-08 04:46] VITALS: BP 134/80
[2017-05-08 10:33] VITALS: BP 156/82
[2017-05-08 11:35] VITALS: BP 130/72
[2017-05-08 16:18] VITALS: BP 129/81
[2017-05-08 23:49] VITALS: BP 149/92
[2017-05-09] VITALS (8 sets, daily range): BP systolic 143–161; BP diastolic 77–101
[2017-05-10] VITALS (7 sets, daily range): BP systolic 123–174; BP diastolic 57–89; Ht 167.6 cm; Wt 65.9 kg
[2017-05-11 05:40] VITALS: BP 129/91
[2017-05-11 08:21] VITALS: BP 174/86
[2017-05-11 12:36] VITALS: BP 134/68
[2017-05-11 16:23] VITALS: BP 124/85
[2017-05-11 20:30] VITALS: BP 159/84
[2017-05-12 00:30] VITALS: BP 145/77
[2017-05-12 04:30] VITALS: BP 165/74
[2017-05-12 09:14] VITALS: BP 156/87
[2017-05-12 12:23] VITALS: BP 148/81
[2017-05-12] MEDS ORDERED: CARAFATE1 G PO (16:34)
[2017-05-12] MEDS ORDERED: ZOFRAN4 MG PO (16:41)
[2017-05-12] MEDS ORDERED: OXYCODONE HCL E20 MG PO (16:42)
[2017-05-12] MEDS ORDERED: DILAUDID2 MG PO (16:44)
[2017-05-12] MEDS ORDERED: MEDROL DOSE PACK4 MG PO (16:44)
[2017-05-12] MEDS ORDERED: NEURONTIN 300300 MG PO (16:46)
[2017-05-13 10:12] LABS: ANA REFLEX - DBL STRANDED DNA <1 IU/mL (0-9); ANA REFLEX - DIRECT Negative (Negative); ANA REFLEX - SJOGRENS AB SSA <0.2 AI (0.0-0.9); ANA REFLEX - SJOGRENS AB SSB <0.2 AI (0.0-0.9)
[2017-05-14 08:20] LABS: SPE - A/G RATIO 1.3 (0.7-1.7); SPE - ALBUMIN 3.3 g/dL (2.9-4.4); SPE - ALPHA-1 GLOBULIN 0.2 g/dL (0.0-0.4); SPE - ALPHA-2 GLOBULIN 0.7 g/dL (0.4-1.0); SPE - GAMMA GLOBULIN 0.8 g/dL (0.4-1.8); SPE - M-SPIKE Not Observed g/dL (Not Observed); SPE - TOTAL PROTEIN 5.9 g/dL (6.0-8.5)
== END 2017-05-12 18:26 | disposition home or self-care (01) | DRG 552 ==
LOC: D.SDCHOLD 13:40 → D.MS 15:30
PROVIDERS: Internal Medicine Rheumatology; Student in an Organized Health Care Education/Training Program
PROC: 0DB78ZX Excision of Stomach, Pylorus, Via Natural or Artificial Opening Endoscopic, Diagnostic (ICD-10-PCS; 2017-05-09)
PROC: 3E033FZ Introduction of Intracirculatory Anesthetic into Peripheral Vein, Percutaneous Approach (ICD-10-PCS; principal; 2017-05-11)
DX: M51.24 Other intervertebral disc displacement, thoracic region (principal); G90.59 Complex regional pain syndrome I of other specified site; K59.03 Drug induced constipation; T40.2X5A Adverse effect of other opioids, initial encounter; F41.8 Other specified anxiety disorders; R68.81 Early satiety; R10.13 Epigastric pain; R23.1 Pallor; L29.9 Pruritus, unspecified; K29.80 Duodenitis without bleeding; M35.00 Sjogren syndrome, unspecified; K21.0 Gastro-esophageal reflux disease with esophagitis

== ENCOUNTER → 2018-02-17 13:29 | Outpatient (CLI) | payer BC ==
[2017-05-10 02:08] VITALS: BMI 23.4
[~2018-02-17 13:29] MED LIST changes: +CARAFATE1 G PO; +DILAUDID2 MG PO; +MEDROL DOSE PACK4 MG PO; +NEURONTIN 300300 MG PO; +OXYCODONE HCL E20 MG PO; +ZOFRAN4 MG PO
== END | disposition home or self-care (01) ==
LOC: D.RAD 13:29
DX: S43.492A Other sprain of left shoulder joint, initial encounter (principal); M46.44 Discitis, unspecified, thoracic region; X58.XXXA Exposure to other specified factors, initial encounter

== ENCOUNTER 2018-05-22 06:30 | Day surgery (SDC) | payer BC ==
[2018-05-21 16:21] LABS: HEMATOCRIT 44.2 % (36.0-48.0); MCH 31.6 pg (26.0-34.0); MCHC 33.9 g/dL (31.0-37.0); MCV 93.2 fL (80.0-100.0); MEAN PLATELET VOLUME 9.5 fL (7.4-10.4); RBC 4.74 10x6/uL (4.00-5.40); RDW 14.5 % (11.5-14.5); WBC 11.5 10x3/uL (4.8-10.8)
[~2018-05-22] VITALS: Ht 167.6 cm; Wt 65.8 kg
[~2018-05-22 06:30] MED LIST changes: +CYMBALTA60 MG PO; +LEVOTHYROXINE50 MCG PO; +LIPITOR10 MG PO; +MIMVEY 1-0.5 M1 EACH PO; +PERCOCET 10-321 EAC1 PO; +TRAZODONE HCL150 MG PO
[2018-05-22] MEDS ORDERED: [UNRECOGNIZED DRUG - OTHER] PO (07:36)
[2018-05-22 07:41] VITALS: BP 139/86; Ht 167.6 cm; Wt 65.8 kg
[2018-05-22] MEDS ORDERED: DILAUDID2 MG PO (10:24)
[2018-05-22] MEDS ORDERED: SOMA350 MG PO (10:24)
--- NOTE | 2018-05-22 11:48 | OP ---
PATIENT NAME: FIDELIA MATHEWS MEDICAL RECORD: [id number] :61 LOCATION:D.OPS ADMISSION DATE: SURGEON: BRANDI HERNANDEZ MD DATE OF OPERATION: 05/22/2018 PREOPERATIVE DIAGNOSES: 1. SLAP lesion of the left shoulder. 2. Impingement syndrome of the left shoulder. POSTOPERATIVE DIAGNOSES: 1. SLAP lesion of the left shoulder. 2. Impingement syndrome of the left shoulder. 3. Rotator cuff tear. PROCEDURES: 1. Arthroscopic rotator cuff repair. 2. Arthroscopic SLAP repair. 3. Arthroscopic distal clavicle excision done through separate incision - 1 cm. 4. Arthroscopic subacromial decompression with acromioplasty and bursectomy. SURGEON: Brandi Hernandez MD ANESTHESIA: General. INTRAOPERATIVE COMPLICATIONS: None. SUMMARY OF PATHOLOGIC FINDINGS: The patient indeed had a bicipital labral lesion from 10 o'clock to approximately 1:30. Furthermore, the patient had minimal only biceps tendinitis and I did not think it needed a tenodesis or tenotomy. She did have a large PASTA lesion on the anterior aspect of the supraspinatus tendinous footprint that required rotator cuff repair. Furthermore, she had a downward sloping acromion with excoriation of the coracoacromial ligament as well as acromioclavicular arthritis. OPERATIVE SUMMARY IN DETAIL: After obtaining the appropriate preoperative orthopedic surgery consent as well as anesthetic consultation, evaluation and clearance, the patient was brought to the operating room and placed on the operating table in supine position. After adequate general laryngeal mask airway was administered, the patient was placed in a right lateral decubitus position. All pressure points were well padded to include down leg peroneal pad as well as axillary roll. The patient was held firmly to the operating table using vacuum pack suction system. Left upper extremity and shoulder were then prepped and draped in routine sterile fashion. The arm was held in the Arthrex traction boom at 30 degrees of forward flexion, 30 degrees of abduction, 10 pounds of traction laterally. Arthroscopy was established in the glenohumeral joint for posterior portal. Anterior portal was established in the anterior safe interval. Diagnostic arthroscopy revealed the above findings. Attention was first turned to preparation of the superior aspect of the glenoid for reapproximation of the labrum. This was gently taken down to just a small portion of cancellous bone for a good bleeding bed from approximately 10 o'clock to 2 o'clock. At this point, the labrum was fixed using the 2.9 PushLocks from Arthrex with double looped labral tape. This resulted in excellent anchorage with 2 in front of the biceps tendon and one just posterior to the biceps tendon. At this point, the PASTA lesion was approached using a very small hole through the residual rotator cuff. The area of the supraspinatus tendinous OPERATIVE REPORT [id number] FIDELIA MATHEWS footprint on the articular side was decorticated for good reapproximation of tissue. Having completed this, attention was turned to the subacromial space. Accessory lateral portal was created through which the subacromial surface was taken down with [place] surface tissue ablation system. Coracoacromial ligament was released. A 5.0 barrel bur was then used to perform acromioplasty at the level of acromioclavicular joint and through a separate arthroscopic portal anteriorly, distal clavicle was resected as it was seen to have grade IV chondromalacia. Lastly, further decortication was carried out at the lateral aspect of the supraspinatus tendinous footprint. A #2 FiberTape was then passed in inverted mattress fashion and anchored just over the area of the PASTA lesion with a 4.75 SwiveLock from Arthrex. Having completed this, arthroscopy portals were closed in routine interrupted fashion using 4-0 Prolene. Sterile dressings were applied. The patient was awakened and taken to the recovery room in stable condition. All final needle and sponge counts were correct. TRANSINT:[id number] Voice Confirmation ID: [id number] DOCUMENT ID: [id number] MARY JAIN, BRANDI CONWAY at 1148 CC: [id number] DICTATION DATE: 05/22/18 1030 PACKAGE MAKER: 05/22/18 1124 [facility] [address] [place] [id number]
== END 2018-05-22 14:00 | disposition home or self-care (01) ==
LOC: D.OPS 06:30 → D.PAN 16:00 → D.OPS 16:00
PROVIDERS: Anesthesiology
DX: S43.432A Superior glenoid labrum lesion of left shoulder, initial encounter (principal); M75.42 Impingement syndrome of left shoulder; M75.112 Incomplete rotator cuff tear or rupture of left shoulder, not specified as traumatic; Z01.812 Encounter for preprocedural laboratory examination

== ENCOUNTER 2018-09-11 06:10 | Day surgery (SDC) | payer BC ==
[2018-09-10 15:20] LABS: HEMATOCRIT 42.2 % (36.0-48.0); HEMOGLOBIN 14.3 g/dL (12-16); MCH 31.5 pg (26.0-34.0); MCHC 33.9 g/dL (31.0-37.0); MEAN PLATELET VOLUME 9.3 fL (7.4-10.4); RBC 4.54 10x6/uL (4.00-5.40); WBC 9.8 10x3/uL (4.8-10.8)
[~2018-09-11] VITALS: Ht 167.6 cm; Wt 65.8 kg
[~2018-09-11 06:10] MED LIST changes: +SOMA350 MG PO; +[UNRECOGNIZED DRUG - OTHER] PO
[2018-09-11 07:15] VITALS: BP 139/84; Ht 167.6 cm; Wt 65.8 kg
[2018-09-11] MEDS ORDERED: PERCOCET 10-321 EAC1 PO (10:10)
--- NOTE | 2018-09-11 12:00 | NUR ---
DISCHARGE INSTRUCTIONS REVIEWED WITH PATIENT AND SPOUSE, DISCHARGED HOME VIA WHEELCHAIR TO PRIVATE VEHICLE WITH SPOUSE
--- NOTE | 2018-09-16 15:00 | OP ---
PATIENT NAME: FIDELIA MATHEWS MEDICAL RECORD: [id number] :61 LOCATION:[facility] ADMISSION DATE: SURGEON: BRANDI HERNANDEZ MD DATE OF OPERATION: 09/11/2018 PREOPERATIVE DIAGNOSIS: Rotator cuff tear of the left shoulder. POSTOPERATIVE DIAGNOSES: 1. Rotator cuff tear of the left shoulder. 2. Severe biceps tendinitis. PROCEDURES: 1. Arthroscopic rotator cuff repair. 2. Open biceps tenodesis. SURGEON: Brandi Hernandez MD ANESTHESIA: General. INTRAOPERATIVE COMPLICATIONS: None. SUMMARY OF PATHOLOGIC FINDINGS: Ms. Mathews had a recurrent tear of the rotator cuff just posterior to her previous rotator cuff tear. Previous SLAP repair was in overall excellent condition with good reapproximation of the labrum without further damage. She had mild posterior pannus of the labrum, which was also taken down. The biceps tendon was extremely inflammatory and tenodesis was performed. OPERATIVE SUMMARY IN DETAIL: After obtaining appropriate preoperative orthopedic surgery consent as well as anesthetic consultation, evaluation and clearance, the patient was brought to the operating room and placed on the operating table in supine position. After general laryngeal mask airway was administered, the patient was placed in a right lateral decubitus position. All pressure points were well padded to include down leg peroneal pad as well as axillary roll. The patient was held firmly to the operating table using the vacuum pack suction system. Left upper extremity and shoulder were then prepped and draped in routine sterile fashion. The arm was held in the Arthrex traction boom at 30 degrees of forward flexion, 30 degrees of abduction, 10 pounds of traction laterally. Arthroscopy was established in the glenohumeral joint from posterior portal, anterior portal was established in the anterior safe interval. Diagnostic arthroscopy did reveal the above findings. Accessory lateral portal was created through which the rotator cuff debridement was carried out both on the articular aspect footprint. Decortication was also carried out. Attention was turned to the subacromial space. While in the subacromial space, further bursectomy was taken down. Substantial amounts of synovitis was also taken down. Rotator cuff was then fixed arthroscopically with a single inverted FiberTape and a 5.5 SwiveLock from Arthrex for good fixation. At this point, very small incision was made, taken down to the level of the biceps tendon, which was identified. It was then removed with tenotomy at the bicipital labral junction after a #2 FiberWire had already been tied through it to hold it in place. A drill hole for an 8 mm biceps tenodesis screw was utilized. The biceps was then tenodesed in the mid aspect of the bicipital groove under direct visualization. This resulted in excellent tenodesis. Having completed this, the wounds were irrigated and closed with #2-0 Vicryl followed by 4-0 Prolene. Sterile dressings were applied. The patient was awakened and taken to the OPERATIVE REPORT [id number] FIDELIA MATHEWS [place] recovery room in stable condition. All final needle and sponge counts were correct. TRANSINT:[id number] Voice Confirmation ID: [id number] DOCUMENT ID: [id number] MARY JAIN, BRANDI CONWAY at 1500 CC: [id number] DICTATION DATE: 09/16/18 0854 BASIC COMBATANT SWIMMER: 09/16/18 0958 [facility] 09/11/18 [address] [place] [address]
== END 2018-09-11 12:00 | disposition home or self-care (01) ==
LOC: D.PAN 06:10 → D.OPS 11:00 → D.PAN 11:00
PROVIDERS: Anesthesiology; ATTEND Orthopaedic Surgery
DX: S43.421A Sprain of right rotator cuff capsule, initial encounter (principal); X58.XXXA Exposure to other specified factors, initial encounter; M75.21 Bicipital tendinitis, right shoulder

== ENCOUNTER → 2018-11-25 10:23 | Outpatient (CLI) | payer BC ==
[2018-09-11 07:15] VITALS: BMI 23.4
== END | disposition home or self-care (01) ==
LOC: D.NM → D.MRI 11-24 13:00 → D.NM 08:15
PROVIDERS: ATTEND Orthopaedic Surgery
DX: M25.372 Other instability, left ankle (principal); M25.512 Pain in left shoulder

== ENCOUNTER 2019-03-05 05:31 | Day surgery (SDC) | payer BC ==
[2019-03-04 14:27] LABS: HEMATOCRIT 40.7 % (36.0-48.0); HEMOGLOBIN 14.1 g/dL (12-16); MCH 31.8 pg (26.0-34.0); MCHC 34.6 g/dL (31.0-37.0); MCV 91.7 fL (80.0-100.0); MEAN PLATELET VOLUME 9.6 fL (7.4-10.4); RBC 4.44 10x6/uL (4.00-5.40); RDW 12.8 % (11.5-14.5); WBC 8.6 10x3/uL (4.8-10.8)
[~2019-03-05] VITALS: Ht 167.6 cm; Wt 68.2 kg
[2019-03-05] VITALS (7 sets, daily range): BP systolic 102–145; BP diastolic 46–94; Ht 167.6 cm; Wt 68.2 kg
[~2019-03-05 05:31] MED LIST changes: +LIPITOR20 MG PO
--- NOTE | 2019-03-05 08:29 | NUR ---
PT REQUIRED BLOOD DRAW FOR PRP. TOOK 30 MINUTES TO OBTAIN BLOOD THUS RESULTING IN DELAY OF START TIME.
--- NOTE | 2019-03-05 09:40 | NUR ---
RECEIVED PATIENT FROM RECOVERY, ALERT AND ORIENTED. VITALS STABLE. NO C/O PAIN. NO S/S OF ACUTE DISTRESS NOTED. PAULINA WRAP AND BRACE TO LEFT ANKLE. PROPED ON PILLOW. IV TO RIGHT HAND, SL. SITE PATENT WITHOUT REDNESS OR SWELLING. DENIES ANY NEEDS AT THIS TIME. FAMILY AT BEDSIDE. CALL LIGHT IN REACH. WILL CONTINUE TO MONITOR.
--- NOTE | 2019-03-05 14:04 | OP ---
PATIENT NAME: FIDELIA MATHEWS MEDICAL RECORD: [id number] :61 LOCATION:D.MS [facility] ADMISSION DATE: SURGEON: BRANDI HERNANDEZ MD DATE OF OPERATION: 03/05/2019 PREOPERATIVE DIAGNOSES: 1. Peroneus longus tendon tear. 2. Chronic ankle instability. POSTOPERATIVE DIAGNOSES: 1. Peroneus longus tendon tear. 2. Chronic ankle instability. PROCEDURE: 1. Brostrom repair of the left ankle. 2. Peroneus longus tendon repair. 3. Application of PRP. SURGEON: Brandi Hernadnez MD MASTER BAKER: Wesley Wilkinson. INTRAOPERATIVE COMPLICATIONS: None. SUMMARY OF PATHOLOGIC FINDINGS: While the MRI showed the patient to have an intact AITF and calcaneofibular ligament, this was definitely not the case. The patient did have a very long longitudinal tear of the peroneus longus that was consistent with the MRI. The patient had substantial amount of inflammation about the area. This obviated the need for a Brostrom repair along with peroneal tendon repair. This was then covered in PRP before closure. OPERATIVE SUMMARY IN DETAIL: After obtaining the appropriate preoperative orthopedic surgery consent as well as anesthetic consultation, evaluation and clearance, the patient was brought to the operating room and placed on the operating table in supine position. After adequate general laryngeal mask airway was administered, the patient was placed in right lateral decubitus position. All pressure points were well padded to include down leg peroneal pad as well as axillary roll. The patient was held firmly to the operating table using the vacuum pack suction system. The left lower extremity was prepared with the tourniquet about the proximal aspect. It was prepped and draped in routine sterile fashion. The appropriate timeout was taken and agreed upon by all. The leg was elevated and exsanguinated, tourniquet was inflated to 350 mmHg. Curvilinear incision was made over the posterior aspect of the lateral malleolus, taken down to the level of the peroneus longus and brevis where the split was found. At this point, dissection carried further showed the patient had a tear of the calcaneal fibular ligament as well as the portions of the anterior inferior talofibular ligament. For this reason, the decision was made to proceed with a Brostrom without internal bracing prior to fixing the peroneus longus. Dissection was carried out. Periosteal flap was created. The AITF as well as the calcaneofibular ligament were both reapproximated using the Arthrex Brostrom repair kit with excellent reapproximation of the ligaments back to the inferior aspect of the lateral malleolus. Having completed the Brostrom with the foot held in a pronated position, attention was then turned to the peroneus longus. Then, 2-0 FiberWire was utilized in a running fashion on both the medial and lateral aspect of the tear, which was quite lengthy from the OPERATIVE REPORT [id number] FIDELIA MATHEWS musculotendinous junction to below the lateral malleolus. Having completed the repair, the rest of the synovitis was excised and very gentle reapproximation of the retinaculum was done as to not over tighten the retinaculum. At this point, 5 cc of platelet rich plasma was injected all along the tendon underneath the repaired retinaculum and into the subcutaneous tissues. This was then closed with 2-0 Vicryl followed by 4-0 Prolene in running fashion by SHALINI Cee. Having completed this, sterile dressings were applied. Tourniquet was deflated. The posterior L&U splint was applied. The patient was awakened and taken to the recovery room in stable condition. Given the amount of extra surgery needed, I think the patient will warrant observation status and I have ordered thusly. All final needle and sponge counts correct. TRANSINT:[id number] Voice Confirmation ID: [id number] DOCUMENT ID: [id number] MARY JAIN, BRANDI CONWAY at 1404 CC: [id number] DICTATION DATE: 03/05/19 0851 [employer] APPRENTICE: 03/05/19 1024 [facility] [address] [place] [address]
--- NOTE | 2019-03-05 18:49 | NUR ---
ALERT AND ORIENTED. DENIES ANY NEEDS AT THIS TIME. CALL LIGHT IN REACH. WILL CONTINUE TO MONITOR.
--- NOTE | 2019-03-05 20:25 | NUR ---
LYING IN BED. ALERT AND ORIENTED X4. C/O PAIN IN LT ANKLE 2. LLE ELEVATED ON PILLOWS X2. SOFT CAST NOTED TO LLE. PEDAL PULSES PRESENT BILAT. NO EDEMA NOTED. 1/2 NS @ 30 ML/HR INFUSING IN RT HAND WITHOUT DIFF. RESP EVEN AND NONLABORED. SR ELEVATED X2. CL IN REACH.
--- NOTE | 2019-03-05 20:36 | NUR ---
MEDICATED WITH PERCOCET FOR C/O PAIN IN LT ANKLE. CL IN REACH.
[2019-03-06 00:13] VITALS: BP 122/62
--- NOTE | 2019-03-06 00:52 | NUR ---
MEDICATED WITH PERCOCET FOR C/O PAIN IN LT ANKLE. CL IN REACH.
[2019-03-06 05:14] VITALS: BP 133/77
--- NOTE | 2019-03-06 07:16 | NUR ---
PT IS RESTING IN BED WITH EYES OPEN. RESPIRATIONS ARE EVEN AND UNLABORED. PT IS AAO X 4. DRESSING TO LLE IS C/D/I. PT REPORTS NUMBNESS/TINGLING TO LLE BT REPORTS THAT SHE IS "STARTING TO GET SOME FEELING". PT DENIES PRESENCE OF N/V. PT REPORTS PAIN 3/10 DENIES NEEDS FOR PAIN MEDICATION AT THIS TIME. LLE CAP REFILL < 3 AND TOES ARE WARM TO TOUCH. BED IS IN THE LOWEST POSITION. CALL LIGHT AND BEDSIDE TABLE ARE WITHIN REACH. SIDE RAILS X 2. PT DENIES FURTHER NEEDS. WILL CONT TO MONITOR.
[2019-03-06 08:46] VITALS: BP 132/77
[2019-03-06] MEDS ORDERED: PERCOCET 10-321 EAC1 PO (11:48)
[2019-03-06] MEDS ORDERED: ASPIRIN325 MG PO (11:49)
--- NOTE | 2019-03-06 12:43 | MORECARE ---
CASE MANAGEMENT DISCHARGE SUMMARY PATIENT: FIDELIA MATHEWS UNIT: [id number] ADM DATE: 03/05/19 AGE: 53 : 61 SEX: F ROOM/BED: D.2224 AUTHOR: DUSTIN AMAYA PHYSICIAN: REFERRING PHYSICIAN: BRANDI HERNANDEZ MD DATE OF SERVICE: 03/06/19 Discharge Plan Patient Name: FIDELIA MATHEWS Facility: [facility]:[place] : 1965 Planned Disposition: Home Anticipated Discharge Date: 03/06/19 Discharge Date: Expected LOS: 1 Initial Reviewer: [email or web address] Initial Review Date: 03/06/2019 Generated: 03/06/19 1:43 pm Comments DCP- Discharge Planning Updated by [email or web address]: Hallie Garrison on 03/06/19 11:[address] Patient Name: FIDELIA MATHEWS Admission Status: Elective Accout number: [id number] Admission Date: 03-05-2019 : 1965 Admission Diagnosis: Attending: BRANDI HERNANDEZ Current LOS: 1 Anticipated DC Date: 03-06-2019 Planned Disposition: Home Primary Insurance: [employer] [facility] Discharge Planning Comments: CM received discharge orders on the [facility] patient. I met with her to discuss discharge planning/needs. Her is in the room to transport her home. She is independent with her care at home. She already has crutches in the room and she states she knows how to use them. Declines need for additional DME. Home today, no needs. Fireperson: Hallie Garrison Patient Name: FIDELIA MATHEWS Page [id number] at 1243 All edits/amendments must be made on the electronic document DICTATION DATE: 03/06/19 1243 STARCHER AND TENTER RANGE FEEDER: JANNETTE 03/06/19 1243 RPT#: [id number] DC DATE: STATUS: REG [facility] [address] [place] [address] END OF REPORT
[2019-03-06 13:11] VITALS: BP 133/62
--- NOTE | 2019-03-06 13:15 | NUR ---
ALL DISCHARGE INSTRUCTIONS COVERED WTH PT AND PT SPOUSE. (2) PRINTED RX GIVEN TO PT. PIV TO RIGHT HAND REMOVED WITH CATHETER TIP INTACT. DRESSING APPLIED. PT DENIES FURTHER QUESTIONS/CONCERNS/NEEDS AT THIS TIME. PT TO NOTIFY NURSE WHEN READY FOR TRANSPORT FROM ROOM. ALL DISCHARGE PAPERS SIGNED.
--- NOTE | 2019-03-06 13:30 | NUR ---
PT TRANSPORTED FROM ROOM VIA WHEELCHAIR FOR TRANSPORTATION HOME. PT DENIES FURTHER QUESTIONS/CONCERNS/NEEDS AT THIS TIME.
--- NOTE | 2019-03-09 14:16 | MORECARE ---
CASE MANAGEMENT DISCHARGE SUMMARY PATIENT: FIDELIA MATHEWS UNIT: [id number] ADM DATE: 03/05/19 AGE: 53 : 61 SEX: F ROOM/BED: AUTHOR: DUSTIN AMAYA PHYSICIAN: REFERRING PHYSICIAN: BRANDI HERNANDEZ MD DATE OF SERVICE: 03/09/19 Discharge Plan Patient Name: FIDELIA MATHEWS Facility: [facility]:[place] : 1965 Planned Disposition: Home Anticipated Discharge Date: 03/06/19 Discharge Date: 03/06/2019 Expected LOS: 1 Initial Reviewer: [email or web address] Initial Review Date: 03/06/2019 Generated: 03/09/19 3:15 pm Comments DCP- Discharge Planning Updated by [email or web address]: Hallie Garrison on 03/06/19 11:[address] Patient Name: FIDELIA MATHEWS Admission Status: Elective Accout number: [id number] Admission Date: 03-05-2019 : 1965 Admission Diagnosis: Attending: BRANDI HERNANDEZ Current LOS: 1 Anticipated DC Date: 03-06-2019 Planned Disposition: Home Primary Insurance: [employer] [facility] Discharge Planning Comments: CM received discharge orders on the [facility] patient. I met with her to discuss discharge planning/needs. Her is in the room to transport her home. She is independent with her care at home. She already has crutches in the room and she states she knows how to use them. Declines need for additional DME. Home today, no needs. Material Planning Analyst: Hallie Garrison Last DP export: 03/06/19 11:43 a Patient Name: FIDELIA MATHEWS Page [id number] at 1416 All edits/amendments must be made on the electronic document DICTATION DATE: 03/09/191414 MEAT COUNTER CLERK: JANNETTE 03/09/191414 RPT#: [id number] DC DATE:03/06/19 STATUS: [id number] [place] [address] END OF REPORT
== END 2019-03-06 14:10 | disposition home or self-care (01) ==
LOC: D.MS 05:31 → D.OPS 05:31 → D.PAN 07:30 → D.MS 09:32 → D.OPS 03-06 14:10
PROVIDERS: Anesthesiology; ATTEND Orthopaedic Surgery
DX: S86.312A Strain of muscle(s) and tendon(s) of peroneal muscle group at lower leg level, left leg, initial encounter (principal); M25.372 Other instability, left ankle; M77.11 Lateral epicondylitis, right elbow; M54.12 Radiculopathy, cervical region; M25.521 Pain in right elbow; X58.XXXA Exposure to other specified factors, initial encounter
CPT/HCPCS: 0232T; 27698; 27658